=== PATIENT | male | born 1955 | race Caucasian/White ===

== ENCOUNTER → 2021-12-22 | Outpatient (CLI) | payer MEDICARE | END | disposition home or self-care (01) | LOC: SHCH 12:40 → EDSEX 13:00 | PROVIDERS: ATTEND Internal Medicine Cardiovascular Disease | DX: I08.0 Rheumatic disorders of both mitral and aortic valves (principal); I11.9 Hypertensive heart disease without heart failure; E11.9 Type 2 diabetes mellitus without complications; E78.5 Hyperlipidemia, unspecified; R94.31 Abnormal electrocardiogram [ECG] [EKG] | CPT/HCPCS: 93306 ==

== ENCOUNTER → 2022-03-05 | Outpatient (CLI) | payer MEDICARE ==
[~2022-03-05] MED LIST: REGADENOSON 0.4 MG/5 ML PF SYG IVP SCH
== END | disposition home or self-care (01) ==
LOC: SHCH 07:52
PROVIDERS: ATTEND Internal Medicine Cardiovascular Disease
DX: I45.10 Unspecified right bundle-branch block (principal); I48.0 Paroxysmal atrial fibrillation; I47.1 Supraventricular tachycardia; I48.92 Unspecified atrial flutter
CPT/HCPCS: 78452; 96374; 93017; J2785; A9500 ×2

== ENCOUNTER → 2022-07-02 | Outpatient (CLI) | payer MEDICARE ==
[2022-07-02 13:37] LABS: CREATININE 0.9 mg/dL (0.5-1.5)
== END | disposition home or self-care (01) ==
LOC: LAB 08:07
PROVIDERS: ATTEND Internal Medicine Cardiovascular Disease
DX: I48.0 Paroxysmal atrial fibrillation (principal)
CPT/HCPCS: 36415; 82565; 84520

== ENCOUNTER → 2022-07-08 | Outpatient (CLI) | payer MEDICARE ==
[~2022-07-08] MED LIST changes: +IOHEXOL 350 MG/ML 100ML INFUS..BTL IV ONE; -REGADENOSON 0.4 MG/5 ML PF SYG IVP SCH
== END | disposition home or self-care (01) ==
LOC: RAH 07:58
PROVIDERS: ATTEND Internal Medicine Cardiovascular Disease
DX: I48.0 Paroxysmal atrial fibrillation (principal); I48.92 Unspecified atrial flutter
CPT/HCPCS: 71275; Q9967

== ENCOUNTER 2022-07-27 05:33 | Observation (INO) | payer MEDICARE ==
[2022-07-22 12:39] VITALS: BP 126/68
[2022-07-22 12:41] LABS: BASOPHILS % (AUTO) 0.5 % (0.0-5.0); EOSINOPHILS % (AUTO) 2.9 % (0.0-8.0); HEMATOCRIT 39.9 % (42-54); LYMPHOCYTES % (AUTO) 30.7 % (21.0-51.0); MEAN CORPUSCULAR HEMOGLOBIN 31.3 pg (27.0-33.0); MEAN CORPUSCULAR HGB CONC 32.1 g/dL (32.0-36.0); MEAN CORPUSCULAR VOLUME 97.6 fL (79-99); MONOCYTES % (AUTO) 7.8 % (3.0-13.0); NEUTROPHILS % (AUTO) 57.8 % (40.0-77.0); PLATELET COUNT (AUTO) 107 K/uL (130-400); RED BLOOD CELL COUNT(AUTO) 4.09 MIL/uL (4.50-6.20); RED CELL DISTRIBUTION WIDTH 14.6 % (11.0-15.5); WHITE BLOOD COUNT (AUTO) 7.3 K/uL (4.8-10.8)
[2022-07-22 12:50] LABS: PROTHROMBIN TIME 10.9 SEC (9.6-11.6)
[2022-07-22 13:02] LABS: CREATININE 0.9 mg/dL (0.5-1.5); POTASSIUM 4.4 mmol/L (3.5-5.1)
[~2022-07-27] VITALS: Ht 180.3 cm; Wt 78.2 kg
[2022-07-27] VITALS (26 sets, daily range): BP systolic 124–183; BP diastolic 73–93
[~2022-07-27 05:33] MED LIST changes: +AEC81 PO; +CLON1PAT13 TD; +DAPA10TA PO; +INSU100V37 SQ; -IOHEXOL 350 MG/ML 100ML INFUS..BTL IV ONE; +LOSA1TAB42 PO; +METF-527 PO; +PIOG15TA66 PO; +RIVA20TA PO; +ROSU20TA31 PO; +SERT-440 PO; +SOTA120T PO; +VITAMIN D2 PO
[2022-07-27 06:02] LABS: BASOPHILS % (AUTO) 0.7 % (0.0-5.0); EOSINOPHILS % (AUTO) 5.5 % (0.0-8.0); HEMATOCRIT 40.7 % (42-54); LYMPHOCYTES % (AUTO) 28.9 % (21.0-51.0); MEAN CORPUSCULAR HEMOGLOBIN 31.7 pg (27.0-33.0); MEAN CORPUSCULAR HGB CONC 32.4 g/dL (32.0-36.0); MEAN CORPUSCULAR VOLUME 97.6 fL (79-99); MONOCYTES % (AUTO) 8.8 % (3.0-13.0); NEUTROPHILS % (AUTO) 55.7 % (40.0-77.0); PLATELET COUNT (AUTO) 106 K/uL (130-400); RED BLOOD CELL COUNT(AUTO) 4.17 MIL/uL (4.50-6.20); RED CELL DISTRIBUTION WIDTH 14.6 % (11.0-15.5); WHITE BLOOD COUNT (AUTO) 7.6 K/uL (4.8-10.8)
[2022-07-27] MEDS ORDERED: 0.9%NACL 1000ML 1,000 ML IV ONE (06:08)
[2022-07-27] MEDS ORDERED: PROPOFOL 10 MG/ML 20ML VIAL IV ONE ×2 (06:58→13:13)
[2022-07-27] MEDS ORDERED: ROCURONIUM BROMIDE 10MG/1ML 5ML VL ONE ×2 (06:58→09:26)
[2022-07-27] MEDS ORDERED: ATROPINE 1MG SYG IVP ONE (06:58)
[2022-07-27] MEDS ORDERED: FENTANYL CITRATE PF 50 MCG/1 ML 2ML VIAL ONE (06:58)
[2022-07-27] MEDS ORDERED: HEPARIN 10,000 UNIT/10ML (1,000 UNIT/ML) VIAL ONE ×2 (07:21→07:56)
[2022-07-27] MEDS ORDERED: LIDOCAINE HCL 1% MDV 50ML VIAL ONE (07:21)
[2022-07-27] MEDS ORDERED: MIDAZOLAM HCL 1 MG/ML 2ML VIAL ONE (07:34)
[2022-07-27] MEDS ORDERED: ISOPROTERENOL HCL 0.2 MG/ML AMP/VIAL/BAG ONE (12:21)
[2022-07-27] MEDS ORDERED: PROTAMINE SULFATE 10 MG/ML 25ML VIAL IV ONE (12:32)
[2022-07-27] MEDS ORDERED: SUGAMMADEX SODIUM 200 MG/2 ML VIAL IV ONE (13:26)
[2022-07-27] MEDS ORDERED: PANTOPRAZOLE 40 MG TAB DR PO SCH (14:00)
[2022-07-27] MEDS ORDERED: HYDRALAZINE 20MG/ML VIAL ONE (14:15)
[2022-07-27] MEDS ORDERED: ONDANSETRON 4MG INJ ONE (14:24)
[2022-07-27] MEDS ORDERED: CLONIDINE 0.2 MG/ 24 HR PATCH TD ONE (15:00)
[2022-07-27] MEDS: SUCRALFATE 1 GM TABLET PO SCH ×2 (16:14→21:13)
[2022-07-27] MEDS ORDERED: HYDROCHLOROTHIAZIDE 25 MG TABLET PO SCH (21:00)
[2022-07-27] MEDS ORDERED: ATORVASTATIN 40 MG TABLET PO SCH (21:00)
[2022-07-27] MEDS ORDERED: LOSARTAN 100 MG TABLET PO SCH (21:00)
[2022-07-27] MEDS ORDERED: TRESIBA SQ SCH (21:00)
[2022-07-27] MEDS ORDERED: RIVAROXABAN 20 MG TABLET PO SCH (21:00)
[2022-07-27] MEDS ORDERED: **HM**FARXIGA 10MG PO SCH (21:00)
[2022-07-27] MEDS: METFORMIN HCL 500 MG TAB.SR.24H PO SCH (21:12)
[2022-07-28] MEDS: SUCRALFATE 1 GM TABLET PO SCH ×3 (02:13→12:19)
[2022-07-28 04:14] VITALS: BP 161/81
[2022-07-28 08:05] VITALS: BP 148/83
[2022-07-28] MEDS ORDERED: PANTOPRAZOLE 40 MG TAB DR PO SCH (09:00)
[2022-07-28] MEDS ORDERED: SERTRALINE HCL 50 MG TABLET PO SCH (09:00)
[2022-07-28] MEDS ORDERED: PIOGLITAZONE 15MG TAB PO SCH (09:00)
[2022-07-28] MEDS ORDERED: ASPIRIN 81 MG EC TAB PO SCH (09:00)
[2022-07-28] MEDS: METFORMIN HCL 500 MG TAB.SR.24H PO SCH (09:41)
[2022-07-28 11:49] VITALS: BP 151/88
[2022-07-28] MEDS ORDERED: SUCR1ORA15 PO (14:03)
[2022-07-28] MEDS ORDERED: PANT40TA PO (14:03)
[2022-08-03] MEDS ORDERED: ERGOCALCIFEROL (VITAMIN D2) 50,000 UNIT CAPSULE PO SCH (09:00)
== END 2022-07-28 15:35 | disposition home or self-care (01) ==
LOC: DAH 05:33 → DAHIP 05:34 → 2AH 13:30
PROVIDERS: ADMIT Internal Medicine Cardiovascular Disease; ATTEND Internal Medicine Cardiovascular Disease
DX: I48.0 Paroxysmal atrial fibrillation (principal); Z20.822 Contact with and (suspected) exposure to COVID-19; I10 Essential (primary) hypertension; I47.1 Supraventricular tachycardia; E11.9 Type 2 diabetes mellitus without complications; E78.5 Hyperlipidemia, unspecified; Z79.84 Long term (current) use of oral hypoglycemic drugs; Z79.82 Long term (current) use of aspirin; Z79.899 Other long term (current) drug therapy; Z98.890 Other specified postprocedural states
CPT/HCPCS: 80048; 85025 ×2; 85610; 85730; 87426; 36415 ×2; 93005 ×2; 93622; 93623; 93656; 96374; 85347 ×10; 82948 ×4; C1894 ×4; A4344; A4215 ×2; C1731; A4649 ×2; C1732; C1730; C1766; G0378 ×26; J3010; J7030; J3490 ×4; J2720; J0360; J0461; J1644 ×4; J2250; J2704 ×2; J2405; A4223 ×3; A4222; A4221; A4663; A4216; A4606

== ENCOUNTER 2022-10-18 21:05 | Emergency (ER) | payer MEDICARE ==
[~2022-10-18] VITALS: Ht 180.3 cm; Wt 73.0 kg
[~2022-10-18 21:05] MED LIST changes: +PANT40TA PO; -SOTA120T PO; +SUCR1ORA15 PO
[2022-10-18] MEDS ORDERED: LIDOCAINE HCL 1% 20 ML VIAL ONE (22:48)
[2022-10-18] MEDS ORDERED: ACETAMINOPHEN 500 MG TABLET ONE (23:38)
[2022-10-18 23:44] VITALS: BP 138/76
== END 2022-10-18 23:47 | disposition home or self-care (01) ==
LOC: EDH 21:05
DX: S01.01XA Laceration without foreign body of scalp, initial encounter (principal); I48.91 Unspecified atrial fibrillation; Z79.899 Other long term (current) drug therapy; W18.30XA Fall on same level, unspecified, initial encounter; Y93.89 Activity, other specified; Y92.89 Other specified places as the place of occurrence of the external cause; Y99.8 Other external cause status
CPT/HCPCS: 12002; 70450; 72125

== ENCOUNTER 2022-10-25 17:24 | Emergency (ER) | payer MEDICARE ==
[~2022-10-25] VITALS: Ht 180.3 cm; Wt 73.0 kg
[~2022-10-25 17:24] MED LIST changes: -ROSU20TA31 PO; +ROSU20TA73 PO
[2022-10-25 19:39] VITALS: BP 113/59
== END 2022-10-25 19:58 | disposition home or self-care (01) ==
LOC: EDH 17:24
DX: S01.01XD Laceration without foreign body of scalp, subsequent encounter (principal); I48.91 Unspecified atrial fibrillation; Z79.82 Long term (current) use of aspirin; Z79.84 Long term (current) use of oral hypoglycemic drugs; Z79.899 Other long term (current) drug therapy; X58.XXXD Exposure to other specified factors, subsequent encounter
CPT/HCPCS: 99281

== ENCOUNTER → 2022-10-29 | Outpatient (CLI) | payer MEDICARE ==
[2022-10-29 09:11] LABS: BASOPHILS % (AUTO) 0.3 % (0.0-5.0); EOSINOPHILS % (AUTO) 1.1 % (0.0-8.0); LYMPHOCYTES % (AUTO) 10.7 % (21.0-51.0); MEAN CORPUSCULAR HEMOGLOBIN 29.9 pg (27.0-33.0); MEAN CORPUSCULAR HGB CONC 30.8 g/dL (32.0-36.0); MONOCYTES % (AUTO) 6.9 % (3.0-13.0); NEUTROPHILS % (AUTO) 80.7 % (40.0-77.0); PLATELET COUNT (AUTO) 142 K/uL (130-400); RED BLOOD CELL COUNT(AUTO) 2.68 MIL/uL (4.50-6.20); RED CELL DISTRIBUTION WIDTH 15.6 % (11.0-15.5); WHITE BLOOD COUNT (AUTO) 9.8 K/uL (4.8-10.8)
[2022-10-29 09:20] LABS: INR 1.1 (0.85-1.15); PROTHROMBIN TIME 11.9 SEC (9.6-11.6)
[2022-10-29 09:21] LABS: PARTIAL THROMBOPLASTIN TIME 30.6 SEC (26.3-35.5)
[2022-10-29 09:42] LABS: POTASSIUM 4.8 mmol/L (3.5-5.1)
== END | disposition home or self-care (01) ==
LOC: LAB 08:17
PROVIDERS: ATTEND Internal Medicine Cardiovascular Disease
DX: I73.9 Peripheral vascular disease, unspecified (principal); E11.9 Type 2 diabetes mellitus without complications; E78.2 Mixed hyperlipidemia; I48.0 Paroxysmal atrial fibrillation; I10 Essential (primary) hypertension; R01.1 Cardiac murmur, unspecified; R00.2 Palpitations; M79.605 Pain in left leg; M79.606 Pain in leg, unspecified
CPT/HCPCS: 36415; 80048; 85025; 85610; 85730

== ENCOUNTER 2023-01-28 13:01 | Day surgery (SDC) | payer MEDICARE ==
[~2023-01-28] VITALS: Ht 180.3 cm; Wt 73.0 kg
[2023-01-28] MEDS ORDERED: 0.9%NACL 1000ML 1,000 ML IV ONE (13:25)
[2023-01-28 13:46] VITALS: BP 174/124; PULSE 122; RESP 19
[2023-01-28] MEDS ORDERED: SOTA120T PO (13:57)
[2023-01-28] MEDS ORDERED: LOSA50TA64 PO (13:57)
[2023-01-28] MEDS ORDERED: PINDOLOL PO (13:57)
[2023-01-28] MEDS ORDERED: PIOG15TA66 PO (13:57)
== END 2023-01-28 14:00 | disposition home or self-care (01) ==
LOC: ENDO 13:01
PROVIDERS: ATTEND Internal Medicine Gastroenterology
DX: I47.1 Supraventricular tachycardia (principal); I10 Essential (primary) hypertension; I25.10 Atherosclerotic heart disease of native coronary artery without angina pectoris; G30.9 Alzheimer's disease, unspecified; R19.5 Other fecal abnormalities; E11.51 Type 2 diabetes mellitus with diabetic peripheral angiopathy without gangrene; I48.0 Paroxysmal atrial fibrillation; K21.9 Gastro-esophageal reflux disease without esophagitis; E78.00 Pure hypercholesterolemia, unspecified; Z79.01 Long term (current) use of anticoagulants; Z79.82 Long term (current) use of aspirin; Z79.4 Long term (current) use of insulin; Z85.828 Personal history of other malignant neoplasm of skin; Z86.73 Personal history of transient ischemic attack (TIA), and cerebral infarction without residual deficits
CPT/HCPCS: 93005; J7030

== ENCOUNTER 2023-01-28 14:11 | Inpatient (IN) | payer MEDICARE ==
[~2023-01-28] VITALS: Ht 180.3 cm; Wt 75.0 kg
[~2023-01-28 14:11] MED LIST changes: +LOSA50TA64 PO; +PINDOLOL PO; +SOTA120T PO
[2023-01-28 15:01] LABS: BASOPHILS # (AUTO) 0.01 K/uL (0.00-0.20); BASOPHILS % (AUTO) 0.1 % (0.0-5.0); EOSINOPHILS # (AUTO) 0.01 K/uL (0.00-0.70); EOSINOPHILS % (AUTO) 0.1 % (0.0-8.0); HEMATOCRIT 36.6 % (42-54); IMMATURE GRANULOCYTE ABSOLUTE 0.02 K/uL (0-1); LYMPHOCYTES # (AUTO) 0.8 K/uL (1.0-4.8); LYMPHOCYTES % (AUTO) 10.8 % (21.0-51.0); MEAN CORPUSCULAR HEMOGLOBIN 28.9 pg (27.0-33.0); MEAN CORPUSCULAR HGB CONC 32.2 g/dL (32.0-36.0); MEAN CORPUSCULAR VOLUME 89.5 fL (79-99); MONOCYTES # (AUTO) 0.3 K/uL (0.1-1.0); MONOCYTES % (AUTO) 3.9 % (3.0-13.0); NEUTROPHILS # (AUTO) 6.5 K/uL (1.8-7.7); NEUTROPHILS % (AUTO) 84.8 % (40.0-77.0); PLATELET COUNT (AUTO) 133 K/uL (130-400); RED BLOOD CELL COUNT(AUTO) 4.09 MIL/uL (4.50-6.20); RED CELL DISTRIBUTION WIDTH 18.4 % (11.0-15.5); WHITE BLOOD COUNT (AUTO) 7.7 K/uL (4.8-10.8)
[2023-01-28 15:13] LABS: ALBUMIN 3.4 g/dL (3.5-5.0); BILIRUBIN,TOTAL 0.4 mg/dL (0.2-1.0); CREATININE 0.8 mg/dL (0.5-1.5); POTASSIUM 3.1 mmol/L (3.5-5.1); TOTAL PROTEIN, SERUM 6.8 g/dL (6.0-8.3)
[2023-01-28] MEDS ORDERED: DEXTROSE 50%-WATER 50 ML DISP.SYRIN IV ONE (15:22)
[2023-01-28 16:29] LABS: B-TYPE NATRIURETIC PEPTIDE 479 pg/mL (0-100)
[2023-01-28] MEDS ORDERED: POTASSIUM BICARB/CIT AC 25 MEQ TABLET.EFF PO STA (16:32)
[2023-01-28] MEDS ORDERED: POTASSIUM CHLORIDE 20MEQ/100ML 100 ML IV PRN (18:30)
[2023-01-28] MEDS ORDERED: POTASSIUM CHLORIDE 10% ELIXIR 20 MEQ/15 ML UDCUP PO PRN (18:30)
[2023-01-28] MEDS ORDERED: ACETAMINOPHEN 325 MG TAB PO PRN (18:30)
[2023-01-28] MEDS ORDERED: ONDANSETRON 4MG INJ IV PRN (18:30)
[2023-01-28] MEDS ORDERED: KCL 20 MEQ ERTAB PO PRN (18:30)
[2023-01-28] MEDS ORDERED: HYDRALAZINE 20MG/ML VIAL IV PRN (18:30)
[2023-01-28] MEDS ORDERED: HYDROCODONE/ACETAMINOPHEN 5/325 MG TAB PO PRN (18:30)
[2023-01-28] MEDS ORDERED: MORPHINE 4 MG SYG IV PRN (18:30)
[2023-01-28] MEDS: DEXTROSE 5%-WATER 1,000 ML IV SCH (20:45)
[2023-01-28] MEDS ORDERED: PINDOLOL 5 MG TAB PO SCH (21:00)
[2023-01-28 21:27] LABS: APPEARANCE,URINE CLEAR (CLEAR); BILIRUBIN,URINE NEGATIVE (NEGATIVE); COLOR,URINE LIGHT-YELLOW (YELLOW); GLUCOSE, URINE (UA) 300 mg/dL (NEGATIVE); KETONES,URINE 40 mg/dL (NEGATIVE); LEUKOCYTE ESTERASE ,URINE NEGATIVE Leu/uL (NEGATIVE); NITRATE,URINE NEGATIVE (NEGATIVE); OCCULT BLOOD,URINE NEGATIVE (NEGATIVE); PH,URINE 5.5 (5.0-8.0); PROTEIN,URINE 100 mg/dL (NEGATIVE); UROBILINOGEN,URINE 0.2 mg/dL (0.2-1.0)
[2023-01-28 21:28] LABS: ADD UA MICROSCOPIC YES; MUCUS,URINE RARE LPF (None Seen)
[2023-01-28 21:54] VITALS: BP 161/117; PULSE 130; RESP 20
[2023-01-28 22:00] VITALS: O2SAT 98
[2023-01-29] VITALS (10 sets, daily range): BP systolic 124–166; BP diastolic 83–122; PULSE 68–129; RESP 16–20; O2SAT 98
[2023-01-29 05:03] LABS: BASOPHILS # (AUTO) 0.02 K/uL (0.00-0.20); BASOPHILS % (AUTO) 0.3 % (0.0-5.0); EOSINOPHILS % (AUTO) 1.3 % (0.0-8.0); HEMATOCRIT 34.7 % (42-54); IMMATURE GRANULOCYTE ABSOLUTE 0.02 K/uL (0-1); LYMPHOCYTES # (AUTO) 1.5 K/uL (1.0-4.8); MEAN CORPUSCULAR HEMOGLOBIN 28.3 pg (27.0-33.0); MEAN CORPUSCULAR HGB CONC 31.4 g/dL (32.0-36.0); MEAN CORPUSCULAR VOLUME 90.1 fL (79-99); MONOCYTES # (AUTO) 0.7 K/uL (0.1-1.0); MONOCYTES % (AUTO) 8.9 % (3.0-13.0); NEUTROPHILS # (AUTO) 5.4 K/uL (1.8-7.7); NEUTROPHILS % (AUTO) 70.2 % (40.0-77.0); PLATELET COUNT (AUTO) 93 K/uL (130-400); RED BLOOD CELL COUNT(AUTO) 3.85 MIL/uL (4.50-6.20); RED CELL DISTRIBUTION WIDTH 18.3 % (11.0-15.5); WHITE BLOOD COUNT (AUTO) 7.7 K/uL (4.8-10.8)
[2023-01-29 05:12] LABS: CREATININE 1.1 mg/dL (0.5-1.5); MAGNESIUM 1.5 mg/dL (1.80-2.40); PHOSPHORUS 2.9 mg/dL (2.5-4.9); POTASSIUM 3.8 mmol/L (3.5-5.1)
[2023-01-29 05:18] LABS: HEMOGLOBIN A1C 6.9 % (4.0-6.0)
[2023-01-29] MEDS: INSULIN HUMULIN R 100 UNIT/ML 3ML SQ SCH ×4 (07:30→21:00)
[2023-01-29] MEDS: FAMOTIDINE 20MG TAB PO SCH (08:31)
[2023-01-29] MEDS: ASPIRIN 81 MG EC TAB PO SCH (08:32)
[2023-01-29] MEDS: SERTRALINE HCL 50 MG TABLET PO SCH (08:32)
[2023-01-29] MEDS: LOSARTAN 50 MG TABLET PO SCH ×2 (08:32→21:56)
[2023-01-29] MEDS: MAGNESIUM 2GM PREMIX 50ML 50 ML IV PRN (08:34)
[2023-01-29] MEDS ORDERED: METFORMIN HCL 1000 MG PO SCH (09:00)
[2023-01-29] MEDS ORDERED: NON-FORMULARY MEDICATION 1 EACH (Sertraline HCl 200 MG) PO SCH (09:00)
[2023-01-29] MEDS ORDERED: SOTALOL HCL 120 MG PO SCH (09:00)
[2023-01-29] MEDS ORDERED: PINDOLOL 5 MG TAB PO SCH (09:00)
[2023-01-29] MEDS ORDERED: SOTALOL HCL 80 MG TABLET PO SCH (09:00)
[2023-01-29] MEDS ORDERED: AMLODIPINE 5 MG TAB PO SCH (10:00)
[2023-01-29] MEDS ORDERED: VERAPAMIL HCL 240 MG SRTAB PO SCH (10:30)
[2023-01-29] MEDS: BISACODYL 5 MG TABLET.DR PO SCH ×2 (15:18→21:56)
[2023-01-29] MEDS: PINDOLOL 5 MG TAB PO SCH ×2 (15:18→21:56)
[2023-01-29] MEDS: POLYETHYLENE GLYCOL 3350 17 GM POWD.PACK PO SCH ×7 (15:18→16:59)
[2023-01-29] MEDS: DEXTROSE 5%-WATER 1,000 ML IV SCH (15:58)
[2023-01-29] MEDS ORDERED: ENALAPRIL MALEATE 5 MG TAB PO STA (17:32)
[2023-01-29] MEDS: Rosuvastatin Calcium 20 MG PO SCH (22:08)
[2023-01-30] VITALS (18 sets, daily range): BP systolic 122–170; BP diastolic 68–125; PULSE 65–129; RESP 18; O2SAT 96–100
[2023-01-30 04:12] LABS: BASOPHILS # (AUTO) 0.02 K/uL (0.00-0.20); BASOPHILS % (AUTO) 0.3 % (0.0-5.0); EOSINOPHILS # (AUTO) 0.16 K/uL (0.00-0.70); EOSINOPHILS % (AUTO) 2.1 % (0.0-8.0); HEMATOCRIT 32.8 % (42-54); IMMATURE GRANULOCYTE ABSOLUTE 0.03 K/uL (0-1); LYMPHOCYTES # (AUTO) 0.9 K/uL (1.0-4.8); LYMPHOCYTES % (AUTO) 12.3 % (21.0-51.0); MEAN CORPUSCULAR HEMOGLOBIN 28.7 pg (27.0-33.0); MEAN CORPUSCULAR HGB CONC 32.3 g/dL (32.0-36.0); MEAN CORPUSCULAR VOLUME 88.9 fL (79-99); MONOCYTES # (AUTO) 0.7 K/uL (0.1-1.0); MONOCYTES % (AUTO) 9.4 % (3.0-13.0); NEUTROPHILS # (AUTO) 5.6 K/uL (1.8-7.7); NEUTROPHILS % (AUTO) 75.5 % (40.0-77.0); PLATELET COUNT (AUTO) 101 K/uL (130-400); RED BLOOD CELL COUNT(AUTO) 3.69 MIL/uL (4.50-6.20); RED CELL DISTRIBUTION WIDTH 18.1 % (11.0-15.5); WHITE BLOOD COUNT (AUTO) 7.5 K/uL (4.8-10.8)
[2023-01-30 04:24] LABS: CREATININE 0.9 mg/dL (0.5-1.5); MAGNESIUM 1.7 mg/dL (1.80-2.40); PHOSPHORUS 2.4 mg/dL (2.5-4.9)
[2023-01-30 04:25] LABS: POTASSIUM 2.9 mmol/L (3.5-5.1)
[2023-01-30] MEDS: INSULIN HUMULIN R 100 UNIT/ML 3ML SQ SCH ×4 (07:30→20:56)
[2023-01-30 08:29] LABS: MAGNESIUM 1.7 mg/dL (1.80-2.40); POTASSIUM 3.3 mmol/L (3.5-5.1)
[2023-01-30] MEDS: LOSARTAN 50 MG TABLET PO SCH ×2 (08:45→20:53)
[2023-01-30] MEDS: FAMOTIDINE 20MG TAB PO SCH (08:46)
[2023-01-30] MEDS: BISACODYL 5 MG TABLET.DR PO SCH ×2 (08:46→20:54)
[2023-01-30] MEDS: PINDOLOL 5 MG TAB PO SCH ×2 (08:47→20:54)
[2023-01-30] MEDS: SERTRALINE HCL 50 MG TABLET PO SCH (08:48)
[2023-01-30] MEDS: ASPIRIN 81 MG EC TAB PO SCH (09:00)
[2023-01-30] MEDS ORDERED: ENALAPRIL MALEATE 5 MG TAB PO SCH ×3 (09:00→21:00)
[2023-01-30] MEDS ORDERED: METOPROLOL TARTRATE 1 MG/ML 5ML VIAL IV ONE (09:30)
[2023-01-30] MEDS ORDERED: KCL 20 MEQ ERTAB PO ONE ×2 (09:30→21:00)
[2023-01-30] MEDS ORDERED: MAGNESIUM OXIDE 400 MG TABLET PO SCH (09:30)
[2023-01-30] MEDS: ACETAMINOPHEN 325 MG TAB PO PRN (09:46)
[2023-01-30] MEDS ORDERED: DILTIAZEM 180MG SR CAP PO SCH (11:30)
[2023-01-30] MEDS: DEXTROSE 5%-WATER 1,000 ML IV SCH (13:00)
[2023-01-30] MEDS ORDERED: DILTIAZEM 25MG INJ IVP ONE ×2 (14:00→16:30)
[2023-01-30] MEDS ORDERED: [UNRECOGNIZED DRUG - OTHER] IV SCH (14:00)
[2023-01-30] MEDS ORDERED: DILTIAZEM IV SCH (14:00)
[2023-01-30] MEDS ORDERED: DILTIAZEM 125 MG/25 ML INJ 125 MG in 0.9%NACL 100ML 100 ML IV SCH (14:30)
[2023-01-30] MEDS: DILTIAZEM 125 MG/25 ML INJ 125 MG in 0.9%NACL 100ML 100 ML IV SCH (14:37)
[2023-01-30] MEDS: POLYETHYLENE GLYCOL 3350 17 GM POWD.PACK PO SCH ×3 (20:53→21:37)
[2023-01-30 21:00] LABS: MAGNESIUM 1.8 mg/dL (1.80-2.40); POTASSIUM 3.6 mmol/L (3.5-5.1)
[2023-01-30] MEDS: Rosuvastatin Calcium 20 MG PO SCH (21:00)
[2023-01-30] MEDS ORDERED: BISACODYL 5 MG TABLET.DR PO SCH (21:00)
[2023-01-30 22:02] LABS: INR 0.97 (0.85-1.15); PROTHROMBIN TIME 11.3 SEC (9.6-11.6)
[2023-01-30 22:03] LABS: PARTIAL THROMBOPLASTIN TIME 27.8 SEC (26.3-35.5)
[2023-01-31] VITALS (9 sets, daily range): BP systolic 113–146; BP diastolic 34–110; PULSE 58–130; RESP 16–18; O2SAT 96
[2023-01-31] MEDS: DILTIAZEM 125 MG/25 ML INJ 125 MG in 0.9%NACL 100ML 100 ML IV SCH ×2 (03:29→12:32)
[2023-01-31 04:29] LABS: BASOPHILS # (AUTO) 0.03 K/uL (0.00-0.20); BASOPHILS % (AUTO) 0.5 % (0.0-5.0); EOSINOPHILS # (AUTO) 0.16 K/uL (0.00-0.70); EOSINOPHILS % (AUTO) 2.4 % (0.0-8.0); HEMATOCRIT 32.9 % (42-54); IMMATURE GRANULOCYTE ABSOLUTE 0.02 K/uL (0-1); LYMPHOCYTES # (AUTO) 1.1 K/uL (1.0-4.8); LYMPHOCYTES % (AUTO) 16.2 % (21.0-51.0); MEAN CORPUSCULAR HEMOGLOBIN 28.9 pg (27.0-33.0); MEAN CORPUSCULAR HGB CONC 32.2 g/dL (32.0-36.0); MEAN CORPUSCULAR VOLUME 89.6 fL (79-99); MONOCYTES # (AUTO) 0.6 K/uL (0.1-1.0); MONOCYTES % (AUTO) 9.3 % (3.0-13.0); NEUTROPHILS # (AUTO) 4.7 K/uL (1.8-7.7); NEUTROPHILS % (AUTO) 71.3 % (40.0-77.0); PLATELET COUNT (AUTO) 105 K/uL (130-400); RED BLOOD CELL COUNT(AUTO) 3.67 MIL/uL (4.50-6.20); RED CELL DISTRIBUTION WIDTH 18.2 % (11.0-15.5); WHITE BLOOD COUNT (AUTO) 6.7 K/uL (4.8-10.8)
[2023-01-31 04:35] LABS: CREATININE 0.8 mg/dL (0.5-1.5); POTASSIUM 3.4 mmol/L (3.5-5.1)
[2023-01-31] MEDS ORDERED: METOPROLOL TARTRATE 1 MG/ML 5ML VIAL IV ONE (04:51)
[2023-01-31] MEDS: INSULIN HUMULIN R 100 UNIT/ML 3ML SQ SCH ×4 (06:23→21:00)
[2023-01-31] MEDS: ASPIRIN 81 MG EC TAB PO SCH (09:00)
[2023-01-31] MEDS: ENOXAPARIN SODIUM 80 MG/0.8 ML SQ SCH ×2 (09:00→21:00)
[2023-01-31] MEDS: BISACODYL 5 MG TABLET.DR PO SCH ×3 (09:00→23:18)
[2023-01-31] MEDS: DEXTROSE 5%-WATER 1,000 ML IV SCH (09:00)
[2023-01-31] MEDS ORDERED: DILTIAZEM 180MG SR CAP PO SCH (09:00)
[2023-01-31] MEDS ORDERED: SOTALOL HCL 80 MG TABLET PO SCH (09:00)
[2023-01-31] MEDS: ACETAMINOPHEN 325 MG TAB PO PRN (10:19)
[2023-01-31] MEDS: PINDOLOL 5 MG TAB PO SCH ×2 (10:20→22:52)
[2023-01-31] MEDS: SERTRALINE HCL 50 MG TABLET PO SCH (10:36)
[2023-01-31] MEDS: FAMOTIDINE 20MG TAB PO SCH (10:36)
[2023-01-31] MEDS: LOSARTAN 50 MG TABLET PO SCH ×2 (10:36→23:27)
[2023-01-31] MEDS: VERAPAMIL HCL 80 MG TABLET PO SCH ×2 (12:30→23:27)
[2023-01-31] MEDS ORDERED: CLONIDINE 0.2 MG/ 24 HR PATCH TD SCH (15:00)
[2023-01-31] MEDS: Rosuvastatin Calcium 20 MG PO SCH (21:00)
[2023-01-31] MEDS: METOPROLOL TARTRATE 25 MG TAB PO SCH (21:05)
[2023-01-31] MEDS ORDERED: POLYETHYLENE GLYCOL 3350 17 GM POWD.PACK PO ONE (22:00)
[2023-02-01] VITALS (19 sets, daily range): BP systolic 149–179; BP diastolic 75–99; PULSE 79–91; RESP 16–20; O2SAT 95–96
[2023-02-01 04:01] LABS: BASOPHILS # (AUTO) 0.03 K/uL (0.00-0.20); BASOPHILS % (AUTO) 0.4 % (0.0-5.0); EOSINOPHILS # (AUTO) 0.16 K/uL (0.00-0.70); EOSINOPHILS % (AUTO) 1.9 % (0.0-8.0); IMMATURE GRANULOCYTE ABSOLUTE 0.04 K/uL (0-1); LYMPHOCYTES # (AUTO) 0.9 K/uL (1.0-4.8); LYMPHOCYTES % (AUTO) 10.5 % (21.0-51.0); MEAN CORPUSCULAR HEMOGLOBIN 28.7 pg (27.0-33.0); MEAN CORPUSCULAR HGB CONC 31.9 g/dL (32.0-36.0); MEAN CORPUSCULAR VOLUME 89.9 fL (79-99); MONOCYTES # (AUTO) 0.8 K/uL (0.1-1.0); MONOCYTES % (AUTO) 9.4 % (3.0-13.0); NEUTROPHILS # (AUTO) 6.6 K/uL (1.8-7.7); NEUTROPHILS % (AUTO) 77.3 % (40.0-77.0); PLATELET COUNT (AUTO) 113 K/uL (130-400); RED BLOOD CELL COUNT(AUTO) 3.56 MIL/uL (4.50-6.20); RED CELL DISTRIBUTION WIDTH 18.5 % (11.0-15.5); WHITE BLOOD COUNT (AUTO) 8.5 K/uL (4.8-10.8)
[2023-02-01 04:20] LABS: BILIRUBIN,TOTAL 0.5 mg/dL (0.2-1.0); MAGNESIUM 1.6 mg/dL (1.80-2.40); POTASSIUM 3.8 mmol/L (3.5-5.1); TOTAL PROTEIN, SERUM 6.3 g/dL (6.0-8.3)
[2023-02-01] MEDS: VERAPAMIL HCL 80 MG TABLET PO SCH ×3 (04:50→20:50)
[2023-02-01] MEDS: MAGNESIUM 2GM PREMIX 50ML 50 ML IV PRN (04:50)
[2023-02-01] MEDS: DEXTROSE 5%-WATER 1,000 ML IV SCH (05:00)
[2023-02-01] MEDS: INSULIN HUMULIN R 100 UNIT/ML 3ML SQ SCH ×4 (06:29→20:49)
[2023-02-01] MEDS: PINDOLOL 5 MG TAB PO SCH ×2 (09:00→20:51)
[2023-02-01] MEDS: ASPIRIN 81 MG EC TAB PO SCH (09:00)
[2023-02-01] MEDS: METOPROLOL TARTRATE 25 MG TAB PO SCH (09:00)
[2023-02-01] MEDS: BISACODYL 5 MG TABLET.DR PO SCH ×3 (09:00→20:51)
[2023-02-01] MEDS: ENOXAPARIN SODIUM 80 MG/0.8 ML SQ SCH ×2 (09:00→20:52)
[2023-02-01] MEDS: LOSARTAN 50 MG TABLET PO SCH ×2 (09:00→20:53)
[2023-02-01] MEDS: SERTRALINE HCL 50 MG TABLET PO SCH (09:00)
[2023-02-01] MEDS: FAMOTIDINE 20MG TAB PO SCH (09:00)
[2023-02-01] MEDS ORDERED: AMIODARONE 900MG VIAL 150 MG in DEXTROSE 5%-WATER 100 ML IV SCH (13:00)
[2023-02-01] MEDS ORDERED: COMPOUND IV MISC 1 EACH IVSOLN MISC PRN (13:00)
[2023-02-01] MEDS ORDERED: COMPOUND IV REFRIGERATED 1 EACH IVSOLN MISC PRN (13:00)
[2023-02-01] MEDS ORDERED: AMIODARONE 900MG VIAL 360 MG in DEXTROSE 5%-WATER 200 ML IV SCH (13:09)
[2023-02-01] MEDS ORDERED: PROPOFOL 10 MG/ML 20ML VIAL IV ONE ×2 (13:56→14:52)
[2023-02-01] MEDS ORDERED: LIDOCAINE PF 100MG/5ML (2%) SYRINGE 5ML ONE (13:57)
[2023-02-01] MEDS ORDERED: GLYCOPYRROLATE 1 MG/5 ML SYRINGE ONE (14:00)
[2023-02-01] MEDS: Rosuvastatin Calcium 20 MG PO SCH (21:00)
[2023-02-01] MEDS: AMIODARONE 900MG VIAL 540 MG in DEXTROSE 5%-WATER 300 ML IV SCH (21:58)
[2023-02-02 00:36] VITALS: BP 161/92; PULSE 92; RESP 16
[2023-02-02] MEDS: DEXTROSE 5%-WATER 1,000 ML IV SCH (01:00)
[2023-02-02 03:14] VITALS: BP 162/97; PULSE 90; RESP 18
[2023-02-02] MEDS: VERAPAMIL HCL 80 MG TABLET PO SCH ×2 (04:24→12:12)
[2023-02-02 04:46] LABS: HEMATOCRIT 31.6 % (42-54); MEAN CORPUSCULAR HEMOGLOBIN 28.5 pg (27.0-33.0); MEAN CORPUSCULAR HGB CONC 32.3 g/dL (32.0-36.0); MEAN CORPUSCULAR VOLUME 88.3 fL (79-99); PLATELET COUNT (AUTO) 117 K/uL (130-400); RED BLOOD CELL COUNT(AUTO) 3.58 MIL/uL (4.50-6.20); WHITE BLOOD COUNT (AUTO) 7.2 K/uL (4.8-10.8)
[2023-02-02 05:05] LABS: ALBUMIN 2.7 g/dL (3.5-5.0); BILIRUBIN,TOTAL 0.4 mg/dL (0.2-1.0); CREATININE 0.8 mg/dL (0.5-1.5); MAGNESIUM 1.8 mg/dL (1.80-2.40); POTASSIUM 3.1 mmol/L (3.5-5.1); TOTAL PROTEIN, SERUM 6.1 g/dL (6.0-8.3)
[2023-02-02] MEDS: INSULIN HUMULIN R 100 UNIT/ML 3ML SQ SCH ×2 (06:54→12:10)
[2023-02-02] MEDS: AMIODARONE 900MG VIAL 540 MG in DEXTROSE 5%-WATER 300 ML IV SCH (06:55)
[2023-02-02 08:04] VITALS: BP 169/96; PULSE 85; RESP 18
[2023-02-02] MEDS ORDERED: POTASSIUM CHLORIDE 20 MEQ/100 ML BAG IV SCH (08:30)
[2023-02-02] MEDS ORDERED: MAGNESIUM 2GM PREMIX 50ML 50 ML IV SCH (08:30)
[2023-02-02] MEDS ORDERED: PINDOLOL 5 MG TAB PO SCH ×2 (09:00)
[2023-02-02] MEDS: SERTRALINE HCL 50 MG TABLET PO SCH (09:14)
[2023-02-02] MEDS: FAMOTIDINE 20MG TAB PO SCH (09:14)
[2023-02-02] MEDS: LOSARTAN 50 MG TABLET PO SCH (09:14)
[2023-02-02] MEDS: ENOXAPARIN SODIUM 80 MG/0.8 ML SQ SCH (09:14)
[2023-02-02] MEDS: BISACODYL 5 MG TABLET.DR PO SCH (09:15)
[2023-02-02] MEDS: ASPIRIN 81 MG EC TAB PO SCH (09:15)
[2023-02-02 09:30] VITALS: O2SAT 96
[2023-02-02] MEDS ORDERED: PIND5 PO (10:54)
[2023-02-02] MEDS ORDERED: APIX5TAB PO (10:54)
[2023-02-02] MEDS ORDERED: NITR0.4T50 SL (10:56)
[2023-02-02] MEDS ORDERED: AMIO200T68 PO (10:56)
[2023-02-02] MEDS ORDERED: VERA40TA5 PO (11:01)
[2023-02-02 11:25] VITALS: BP 120/67; PULSE 80; RESP 18
== END 2023-02-02 15:25 | disposition home or self-care (01) | DRG 394 ==
LOC: EDH 14:11 → EDHIP 18:08 → 2DH 20:05
PROVIDERS: ADMIT Internal Medicine; ATTEND Internal Medicine
PROC: 0DB98ZX Excision of Duodenum, Via Natural or Artificial Opening Endoscopic, Diagnostic (ICD-10-PCS; principal; 2023-02-01)
PROC: 0DB78ZX Excision of Stomach, Pylorus, Via Natural or Artificial Opening Endoscopic, Diagnostic (ICD-10-PCS; 2023-02-01)
PROC: 0DB58ZX Excision of Esophagus, Via Natural or Artificial Opening Endoscopic, Diagnostic (ICD-10-PCS; 2023-02-01)
PROC: 0DBK8ZX Excision of Ascending Colon, Via Natural or Artificial Opening Endoscopic, Diagnostic (ICD-10-PCS; 2023-02-01)
PROC: 0DBL8ZX Excision of Transverse Colon, Via Natural or Artificial Opening Endoscopic, Diagnostic (ICD-10-PCS; 2023-02-01)
PROC: 0DBC8ZX Excision of Ileocecal Valve, Via Natural or Artificial Opening Endoscopic, Diagnostic (ICD-10-PCS; 2023-02-01)
PROC: 0DBM8ZX Excision of Descending Colon, Via Natural or Artificial Opening Endoscopic, Diagnostic (ICD-10-PCS; 2023-02-01)
DX: D12.4 Benign neoplasm of descending colon (principal); D62 Acute posthemorrhagic anemia; I48.4 Atypical atrial flutter; G24.8 Other dystonia; I10 Essential (primary) hypertension; D12.2 Benign neoplasm of ascending colon; K64.1 Second degree hemorrhoids; D12.0 Benign neoplasm of cecum; I95.1 Orthostatic hypotension; E11.649 Type 2 diabetes mellitus with hypoglycemia without coma; E87.6 Hypokalemia; G90.9 Disorder of the autonomic nervous system, unspecified; I48.0 Paroxysmal atrial fibrillation; D12.3 Benign neoplasm of transverse colon; E78.00 Pure hypercholesterolemia, unspecified; R19.5 Other fecal abnormalities; E11.51 Type 2 diabetes mellitus with diabetic peripheral angiopathy without gangrene; I25.10 Atherosclerotic heart disease of native coronary artery without angina pectoris; G30.9 Alzheimer's disease, unspecified; F02.80 Dementia in other diseases classified elsewhere, unspecified severity, without behavioral disturbance, psychotic disturbance, mood disturbance, and anxiety; Z53.9 Procedure and treatment not carried out, unspecified reason; Z79.4 Long term (current) use of insulin; Z51.5 Encounter for palliative care; Z79.01 Long term (current) use of anticoagulants; Z79.82 Long term (current) use of aspirin; Z85.820 Personal history of malignant melanoma of skin; Z85.828 Personal history of other malignant neoplasm of skin; Z86.73 Personal history of transient ischemic attack (TIA), and cerebral infarction without residual deficits; K29.00 Acute gastritis without bleeding; K21.00 Gastro-esophageal reflux disease with esophagitis, without bleeding
CPT/HCPCS: 36415; 43239; 45380; 45381; 45385; 71045; 80048; 80053; 81001; 82550; 82948; 83036; 83605; 83735; 83880; 84100; 84132; 84484; 85025; 85027; 85610; 85730; 87040; 93005; G0378; J0282; J0360; J1650; J1815; J2001; J2704; J3475; J3480; J3490; J7060; J7070

== ENCOUNTER 2023-08-29 06:00 | Day surgery (SDC) | payer MEDICARE ==
[2023-08-26 12:09] LABS: BASOPHILS # (AUTO) 0.06 K/uL (0.00-0.20); BASOPHILS % (AUTO) 0.7 % (0.0-5.0); EOSINOPHILS # (AUTO) 0.38 K/uL (0.00-0.70); EOSINOPHILS % (AUTO) 4.2 % (0.0-8.0); HEMATOCRIT 41.2 % (42-54); IMMATURE GRANULOCYTE ABSOLUTE 0.02 K/uL (0-1); LYMPHOCYTES # (AUTO) 1.7 K/uL (1.0-4.8); LYMPHOCYTES % (AUTO) 18.2 % (21.0-51.0); MEAN CORPUSCULAR VOLUME 96.9 fL (79-99); MONOCYTES # (AUTO) 0.5 K/uL (0.1-1.0); NEUTROPHILS # (AUTO) 6.5 K/uL (1.8-7.7); NEUTROPHILS % (AUTO) 71.7 % (40.0-77.0); PLATELET COUNT (AUTO) 105 K/uL (130-400); RED BLOOD CELL COUNT(AUTO) 4.25 MIL/uL (4.50-6.20); RED CELL DISTRIBUTION WIDTH 16.6 % (11.0-15.5); WHITE BLOOD COUNT (AUTO) 9.1 K/uL (4.8-10.8)
[2023-08-26 12:18] VITALS: BP 137/75; PULSE 50; RESP 18
[2023-08-26 12:23] LABS: CREATININE 1.3 mg/dL (0.5-1.3); POTASSIUM 4.8 mmol/L (3.5-5.1)
[2023-08-26 12:28] LABS: INR 1.79 (0.85-1.15); PROTHROMBIN TIME 20.2 SEC (9.6-11.6)
[2023-08-26 12:29] LABS: PARTIAL THROMBOPLASTIN TIME 51.2 SEC (26.3-35.5)
[2023-08-26 12:31] LABS: B-TYPE NATRIURETIC PEPTIDE 50 pg/mL (0-100)
[2023-08-29] VITALS (10 sets, daily range): BP systolic 117–166; BP diastolic 67–90; PULSE 51–58; RESP 14–18
[~2023-08-29] VITALS: Ht 180.3 cm; Wt 78.4 kg
[~2023-08-29 06:00] MED LIST changes: -AEC81 PO; +AMIO200T68 PO; +APIX5TAB PO; +CLON1PAT12 TD; -CLON1PAT13 TD; -DAPA10TA PO; +DILT120C12 PO; +ERGO500093 PO; +FERS325 PO; -LOSA1TAB42 PO; +METF-444 PO; -METF-527 PO; +MULT-1367 PO; -PANT40TA PO; +PIND10TA2 PO; -PINDOLOL PO; -RIVA20TA PO; -SOTA120T PO; -SUCR1ORA15 PO; -VITAMIN D2 PO
[2023-08-29 06:25] LABS: INR 0.96 (0.85-1.15); PROTHROMBIN TIME 11.4 SEC (9.6-11.6)
[2023-08-29] MEDS: 0.9%NACL 1000ML 1,000 ML IV ONE (06:48)
[2023-08-29] MEDS: DEXTROSE 50%-WATER 50 ML DISP.SYRIN IV ONE (07:15)
[2023-08-29] MEDS ORDERED: MIDAZOLAM HCL 1 MG/ML 2ML VIAL ONE (07:20)
[2023-08-29] MEDS ORDERED: LIDOCAINE HCL 400MG/20ML VIAL ONE (07:20)
[2023-08-29] MEDS ORDERED: HEPARIN 10,000 UNIT/10ML (1,000 UNIT/ML) VIAL ONE (07:20)
[2023-08-29] MEDS ORDERED: FENTANYL CITRATE PF 50 MCG/1 ML 2ML VIAL ONE (07:20)
[2023-08-29] MEDS ORDERED: NICARDIPINE 25MG INJ IV ONE (07:20)
[2023-08-29] MEDS ORDERED: NITROGLYCERIN 50MG VIAL ONE (07:21)
[2023-08-29] MEDS ORDERED: IODIXANOL 320 MG/ML 100 ML VIAL ONE (07:29)
[2023-08-29] MEDS ORDERED: HYDRALAZINE 20MG/ML VIAL ONE (07:54)
[2023-08-29] MEDS ORDERED: CLOPIDOGREL 300MG TAB ONE (09:23)
[2023-08-29] MEDS ORDERED: 0.9%NACL 1000ML 1,000 ML IV SCH (10:00)
== END 2023-08-29 13:45 | disposition home or self-care (01) ==
LOC: DAH 06:00
PROVIDERS: ATTEND Internal Medicine Cardiovascular Disease
DX: I70.211 Atherosclerosis of native arteries of extremities with intermittent claudication, right leg (principal); E11.51 Type 2 diabetes mellitus with diabetic peripheral angiopathy without gangrene; I70.92 Chronic total occlusion of artery of the extremities; I48.0 Paroxysmal atrial fibrillation; I47.20 Ventricular tachycardia, unspecified; E78.2 Mixed hyperlipidemia; I10 Essential (primary) hypertension; D63.8 Anemia in other chronic diseases classified elsewhere; E78.5 Hyperlipidemia, unspecified; R00.1 Bradycardia, unspecified; Z79.899 Other long term (current) drug therapy; Z79.01 Long term (current) use of anticoagulants; Z98.890 Other specified postprocedural states; Z86.010 Personal history of colon polyps
CPT/HCPCS: 80048; 83880; 85025; 85610 ×2; 85730; 36415 ×2; 71045; 93005; 75716; 85347; 82948 ×2; C9772; C1725 ×3; C1894 ×2; C1769 ×2; C1760; C1893; C1887; C2623; C9764; J3010; J3490 ×3; J7030 ×2; J7070; J0360; J1644 ×3; J2250; Q9967; A4215; A4222; A4221; A4663; A4216; A4606; A4223 ×3; 75774; 96360; 96361; 99156; 99157

== ENCOUNTER → 2023-12-08 | Outpatient (CLI) | payer MEDICARE ==
[~2023-12-08] MED LIST changes: -AMIO200T68 PO; -CLON1PAT12 TD; +CLON1PAT13 TD; -DILT120C12 PO; +GADOTERATE MEGLUMINE 10 MMOL/20 ML VIAL IV ONE; +INSU100I24 SQ; -INSU100V37 SQ; +LEVO75CA5 PO; -METF-444 PO
== END | disposition home or self-care (01) ==
LOC: RAH 11:27
PROVIDERS: ATTEND Family Medicine
DX: G31.89 Other specified degenerative diseases of nervous system (principal); R27.0 Ataxia, unspecified; G20.A1 Parkinson's disease without dyskinesia, without mention of fluctuations
CPT/HCPCS: 70553; A9575

== ENCOUNTER → 2024-04-03 | Outpatient (CLI) | payer MEDICARE ==
[~2024-04-03] MED LIST changes: -GADOTERATE MEGLUMINE 10 MMOL/20 ML VIAL IV ONE; -ROSU20TA73 PO; +ROSU20TA98 PO
== END | disposition home or self-care (01) ==
LOC: LAB 03-30 11:43
PROVIDERS: ATTEND Internal Medicine Cardiovascular Disease
DX: I10 Essential (primary) hypertension (principal)
CPT/HCPCS: 36415; 83835

== ENCOUNTER → 2024-04-06 | Outpatient (CLI) | payer MEDICARE | END | disposition home or self-care (01) | LOC: SHCH 08:21 | PROVIDERS: ATTEND Internal Medicine Cardiovascular Disease | DX: I10 Essential (primary) hypertension (principal) | CPT/HCPCS: 93975 ==

== ENCOUNTER → 2024-09-10 | Outpatient (CLI) | payer MEDICARE ==
[~2024-09-10] VITALS: Ht 180.3 cm; Wt 76.4 kg
[~2024-09-10] MED LIST changes: +ASPI-1197 PO; +ATOR40TA69 PO; -CLON1PAT13 TD; +CLOP-31 PO; +EMPA25TA PO; -ERGO500093 PO; -FERS325 PO; +FOLI0.8C PO; -INSU100I24 SQ; -LEVO75CA5 PO; +LEVO88CA5 PO; +LOSA-420 PO; +MECO10005 PO; +METO-409 PO; -MULT-1367 PO; +NIFE-40 PO; -PIND10TA2 PO; +ROSU10TA72 PO; -ROSU20TA98 PO; +SEMA1PEN3 SQ; -SERT-440 PO; +SERT200C PO; +TAMS-55 PO; +VERA120T92 PO; +VERA240T96 PO
[2024-09-10 13:18] LABS: BASOPHILS # (AUTO) 0.04 K/uL (0.00-0.20); BASOPHILS % (AUTO) 0.6 % (0.0-5.0); EOSINOPHILS # (AUTO) 0.29 K/uL (0.00-0.70); EOSINOPHILS % (AUTO) 4.6 % (0.0-8.0); HEMATOCRIT 41.6 % (42-54); IMMATURE GRANULOCYTE ABSOLUTE 0.02 K/uL (0-1); LYMPHOCYTES % (AUTO) 16.3 % (21.0-51.0); MEAN CORPUSCULAR HGB CONC 32.7 g/dL (32.0-36.0); MEAN CORPUSCULAR VOLUME 97.9 fL (79-99); MONOCYTES # (AUTO) 0.5 K/uL (0.1-1.0); MONOCYTES % (AUTO) 8.5 % (3.0-13.0); NEUTROPHILS # (AUTO) 4.3 K/uL (1.8-7.7); NEUTROPHILS % (AUTO) 69.7 % (40.0-77.0); PLATELET COUNT (AUTO) 106 K/uL (130-400); RED BLOOD CELL COUNT(AUTO) 4.25 MIL/uL (4.50-6.20); RED CELL DISTRIBUTION WIDTH 13.9 % (11.0-15.5); WHITE BLOOD COUNT (AUTO) 6.2 K/uL (4.8-10.8)
[2024-09-10 13:27] LABS: INR 0.98 (0.85-1.15); PROTHROMBIN TIME 10.4 SEC (9.6-11.6)
[2024-09-10 13:28] LABS: PARTIAL THROMBOPLASTIN TIME 25.4 SEC (26.3-35.5)
[2024-09-10 13:33] LABS: CREATININE 1.3 mg/dL (0.5-1.3); POTASSIUM 4.1 mmol/L (3.5-5.1)
[2024-09-10 13:42] LABS: B-TYPE NATRIURETIC PEPTIDE 117 pg/mL (0-100)
[2024-09-10 13:59] VITALS: BP 126/71; PULSE 81; RESP 18; TEMP 97.4
--- NOTE | 2024-09-11 06:52 | EKG ---
[facility] Test Date: 2024-09-10 Test Time: 13:08:18 Pat Name: JEREMY MATTHEWS Department: [facility] Room: Gender: M Metrology Specialist: [id number] : 1955 Requested By: ANNABEL CASIANO Order Number: [id number] Reading MD: Annabel Vazquez Measurements Intervals [place] Rate: 71 P: 68 [place]: 159 QRS: 7 QRSD: 102 T: 54 QT: 419 QTc: 456 Interpretive Statements Sinus rhythm Nonspecific T abnrm, anterolateral leads Compared to ECG 09/05/2024 23:07:19 No significant changes Electronically Signed On 09-13-2024 15:00:53 CDT by Annabel Vazquez Please click the below link to view image of tracing.
--- NOTE | 2024-09-11 09:39 | NUR ---
REPORT NORMA [employer] NETWORKING ENGINEER AWARE PT IN HOSPITAL. THEY ARE FOLLOWING UP WITH PT. BETTYE REPORTED. NO NEW ORDERS GIVEN AT THIS TIME. NORMA WILL CALL BACK AFTER CONSULTING WITH DR CASIANO
== END | disposition home or self-care (01) ==
LOC: EDSTATUS 12:00 → DAH 12:39
PROVIDERS: ATTEND Internal Medicine Cardiovascular Disease
DX: Z01.818 Encounter for other preprocedural examination (principal); R94.31 Abnormal electrocardiogram [ECG] [EKG]; I73.9 Peripheral vascular disease, unspecified; I48.0 Paroxysmal atrial fibrillation; Z79.899 Other long term (current) drug therapy
CPT/HCPCS: 36415; 80048; 83880; 85025; 85610; 85730; 93005

== ENCOUNTER → 2025-03-07 | Outpatient (CLI) | payer MEDICARE ==
[~2025-03-07] VITALS: Ht 180.3 cm; Wt 71.8 kg
[~2025-03-07] MED LIST changes: -ASPI-1197 PO; +ATOR-2 PO; -ATOR40TA69 PO; +DRON400T7 PO; +ERGO500093 PO; +FINA5TAB41 PO; +IRON1CAP32 PO; +LEVO75CA6 PO; -LEVO88CA5 PO; -LOSA-420 PO; -LOSA50TA64 PO; -METO-409 PO; -NIFE-40 PO; +PIND10TA8 PO; -PIOG15TA66 PO; -ROSU10TA72 PO; -SEMA1PEN3 SQ; +SEMA2PEN SQ; +SERT-440 PO; -SERT200C PO; -TAMS-55 PO; +VERA180T60 PO; -VERA240T96 PO; +VITAMIN B12 PO; +[UNRECOGNIZED DRUG - OTHER] PO
[2025-03-07 13:37] LABS: IMMATURE GRANULOCYTE ABSOLUTE 0.03 K/uL (0-1); NUCLEATED RED BLOOD CELLS 0.0 % (0.0-0.19); PLATELET COUNT (AUTO) 104 K/uL (130-400); RED BLOOD CELL COUNT(AUTO) 4.36 MIL/uL (4.50-6.20); RED CELL DISTRIBUTION WIDTH 13.4 % (11.0-15.5); WHITE BLOOD COUNT (AUTO) 7.2 K/uL (4.8-10.8)
[2025-03-07 13:45] LABS: CREATININE 1.3 mg/dL (0.5-1.3); GLOMERULAR FILTR. RATE CALC 58.0 mL/min (>90); GLUCOSE,RANDOM 212.0 mg/dL (70-105); SODIUM SERUM 144.0 mmol/L (136-145); UREA NITROGEN, BLOOD 18.0 mg/dL (7-18)
[2025-03-07 14:09] VITALS: BP 141/90; PULSE 119; RESP 15; TEMP 97.3
--- NOTE | 2025-03-07 14:21 | NUR ---
REPORT DR SNYDER NOTIFIED PT TOOK OZEMPIC TUESDAY. RECEIVED ORDERS TO CANCEL AND PT NEEDS TO BE OFF OZEMPIC FOR AT LEAST ONE WEEK. SPOUSE NOTIFIED
== END | disposition home or self-care (01) ==
LOC: EDSTATUS 13:00 → DAH 13:05
PROVIDERS: ATTEND Internal Medicine Cardiovascular Disease
DX: Z01.812 Encounter for preprocedural laboratory examination (principal); I48.0 Paroxysmal atrial fibrillation
CPT/HCPCS: 36415; 80048; 85025

== ENCOUNTER 2025-03-27 09:24 | Day surgery (SDC) | payer MEDICARE ==
[2025-03-25 13:04] LABS: IMMATURE GRANULOCYTE ABSOLUTE 0.03 K/uL (0-1); NUCLEATED RED BLOOD CELLS 0.0 % (0.0-0.19); PLATELET COUNT (AUTO) 111 K/uL (130-400); RED BLOOD CELL COUNT(AUTO) 3.93 MIL/uL (4.50-6.20); RED CELL DISTRIBUTION WIDTH 14.0 % (11.0-15.5); WHITE BLOOD COUNT (AUTO) 6.9 K/uL (4.8-10.8)
[2025-03-25 13:08] LABS: CREATININE 1.2 mg/dL (0.5-1.3); GLOMERULAR FILTR. RATE CALC 64.0 mL/min (>90); GLUCOSE,RANDOM 272.0 mg/dL (70-105); SODIUM SERUM 139.0 mmol/L (136-145); UREA NITROGEN, BLOOD 15.0 mg/dL (7-18)
[2025-03-25 13:10] VITALS: BP 129/89; PULSE 111; RESP 17; TEMP 97.5
[~2025-03-27] VITALS: Ht 180.3 cm; Wt 71.3 kg
[2025-03-27] VITALS (10 sets, daily range): BP systolic 129–172; BP diastolic 88–118; PULSE 77–115; RESP 7–17; TEMP 97.7
[~2025-03-27 09:24] MED LIST changes: -CLOP-31 PO; +CLOP75TA32 PO; -MECO10005 PO; -VERA120T92 PO; -[UNRECOGNIZED DRUG - OTHER] PO
[2025-03-27] MEDS ORDERED: LIDOCAINE PF 100MG/5ML (2%) SYRINGE 5ML ONE (09:41)
[2025-03-27] MEDS ORDERED: GLYCOPYRROLATE 0.2 MG/ML 5 ML VIAL ONE (09:43)
[2025-03-27] MEDS ORDERED: SUCCINYLCHOLINE CHLORIDE 20 MG/ML 10 ML VIAL ONE (09:50)
--- NOTE | 2025-03-27 09:58 | NUR ---
EKG sent to Dr Mitchell upon arrival.
--- NOTE | 2025-03-27 10:29 | EKG ---
[facility] Test Date: 2025-03-27 Test Time: 10:45:05 Pat Name: JEREMY MATTHEWS Department: [facility] Room: [facility] Gender: M Data Security Analyst: [id number] : 1955 Requested By: KATE HOU Order Number: [id number] Reading MD: Estefania De Leon Measurements Intervals [place] Rate: 113 P: 8 [place]: 139 QRS: 2 QRSD: 85 T: 54 QT: 353 QTc: 484 Interpretive Statements Sinus tachycardia Compared to ECG 01/30/2025 09:34:46 Sinus rhythm no longer present Electronically Signed On 03-28-2025 12:32:57 INSTRUMENTATION FITTER by Estefania De Leon Please click the below link to view image of tracing.
--- NOTE | 2025-03-27 12:20 | NUR ---
Cardioversion completed. Procedure start time 12:06 PRAVEENA Valdez adminstered meds 12:[address] Mitchell 12:08 Converted to SR End of Procedure 12:15 Total minutes [address] Mitchell updated and Patient at bedside.
--- NOTE | 2025-03-27 13:10 | NUR ---
Full and complete discharge instructions given to Patient and Family. All questions answered. PIV removed with catheter tip intact. Patient tolerating liquids and voided before discharge. Patint remains in SR with vs wnl. W/C to POV with Family to Home.
--- NOTE | 2025-03-27 16:24 | EKG ---
[facility] Test Date: 2025-03-27 Test Time: 13:05:48 Pat Name: JEREMY MATTHEWS Department: [facility] Room: [facility] Gender: M Senior Advisory: [id number] : 1955 Requested By: KATE HOU Order Number: [id number] Reading MD: Estefania De Leon Measurements Intervals [place] Rate: 78 P: 35 [place]: 160 QRS: -16 QRSD: 112 T: 70 QT: 402 QTc: 459 Interpretive Statements Sinus rhythm Probable left atrial enlargement Compared to ECG 03/27/2025 10:45:05 Sinus tachycardia no longer present Electronically Signed On 03-28-2025 12:31:13 OPTIMIZATION MANAGER by Estefania De Leon Please click the below link to view image of tracing.
--- NOTE | 2025-04-18 07:42 | PRN ---
Procedure Note INDICATION FOR PROCEDURE: Persistent atrial fibrillation PROCEDURE: Cardioversion DATE OF PROCEDURE: HARNESS REPAIRER: Mario Hou MD PROCEDURE NOTE: The patient was prepared in the day patient area in a fasting state. General anesthesia was provided by the anesthesia service. Synchronized cardioversion was performed resulting in sinus rhythm. The patient tolerated the procedure well and there were no complications. IMPRESSION: Persistent atrial fibrillation, status post successful cardioversion PLAN: The patient will be observed and discharged home later this morning and will follow-up with me in the office in approximately 2 weeks. MARIO HOU MD Apr 18, 2025 07:42
== END 2025-03-27 13:45 | disposition home or self-care (01) ==
LOC: DAH 09:24
PROVIDERS: ATTEND Internal Medicine Cardiovascular Disease
DX: I48.19 Other persistent atrial fibrillation (principal); I48.0 Paroxysmal atrial fibrillation; I10 Essential (primary) hypertension; E11.9 Type 2 diabetes mellitus without complications; G47.33 Obstructive sleep apnea (adult) (pediatric); E78.5 Hyperlipidemia, unspecified; E03.9 Hypothyroidism, unspecified; Z79.01 Long term (current) use of anticoagulants; Z85.828 Personal history of other malignant neoplasm of skin; Z79.899 Other long term (current) drug therapy
CPT/HCPCS: 80048; 85025; 36415; 92960; 93005 ×2; 82948; J0330; J2003; J2704; J3490; A4620; A4215; A4222; A4221; A4663; A4216; A4606; A4223 ×3

== ENCOUNTER 2025-04-09 14:54 | Emergency (ER) | payer MEDICARE ==
[~2025-04-09] VITALS: Ht 180.3 cm; Wt 68.0 kg
--- NOTE | 2025-04-09 15:09 | NUR ---
REFER TO TRAUMA FLOW SHEET
--- NOTE | 2025-04-09 15:40 | HMCIMG ---
EXAM: CT Head Without IV contrast. CLINICAL HISTORY: FALL TECHNIQUE: Axial computed tomography images of the head/brain without intravenous contrast. COMPARISON: None provided. FINDINGS: BRAIN: No acute bleed or infarct. Chronic ischemic and atrophic changes. VENTRICLES: No hydrocephalus. ORBITS: The orbits are unremarkable. SINUSES AND MASTOIDS: The paranasal sinuses and mastoid air cells are clear. BONES: No fracture. SOFT TISSUES: Unremarkable. IMPRESSION: No acute bleed or infarct. Chronic ischemic and atrophic changes. /[place]
--- NOTE | 2025-04-09 16:06 | ERN ---
ED Note History of Present Illness Stated Complaint: FALL Chief Complaint: Mechanical Fall Time Seen by MD: 15:01 Dictation: 70-year-old male presenting to the emergency department by personal vehicle after he slipped on some blankets and fell while in the garage onto the back of his head he is on Plavix, no loss of consciousness no vomiting injured the back of his head no other injuries besides scrapes to the right elbow and right hand tetanus is not up-to-date. No chest pain or shortness a breath no back pain was able to ambulate with no hip pain as well. Allergies: Coded Allergies: No Known Drug Allergies (Verified Allergy, Unknown, 03/04/22) Home Meds Reported Medications Folic Acid (Folic Acid) 0.8 Mg Capsule, 0.8 MG PO QODAY, CAP 03/25/25 Empagliflozin (Jardiance) 25 Mg Tablet, 25 MG PO DAILY, TAB 03/25/25 Clopidogrel Bisulfate (Clopidogrel) 75 Mg Tablet, 75 MG PO DAILY, TAB 03/25/25 Sertraline HCl (Sertraline HCl) 100 Mg Tablet, 200 MG PO DAILY, TAB 03/25/25 Levothyroxine Sodium (Levothyroxine) 75 Mcg Capsule, 75 MCG PO ACBKFST, CAP 03/25/25 Iron Fum & P/FA/Vit B & C No.9 (Integra Plus Capsule) 125 Mg Iron-1 Mg Capsule, 1 EACH PO QODAY, CAP 03/25/25 Finasteride (Finasteride) 5 Mg Tablet, 5 MG PO DAILY, TAB 03/25/25 Ergocalciferol (Vitamin D2) (Vitamin D2) 1,250 Mcg (53142 Unit) Capsule, 2 CAP PO QWEEK, CAP 03/25/25 Atorvastatin Calcium (Atorvastatin Calcium) 80 Mg Tablet, 80 MG PO DAILY, TAB 03/25/25 [Vitamin B12] No Conflict Check, 5000 MCG PO QODAY 03/07/25 Verapamil HCl (Verapamil ER) 180 Mg Tablet.er, 180 MG PO AM, TAB 03/07/25 Dronedarone Hydrochloride (Multaq) 400 Mg Tablet, 400 MG PO BID, TAB 03/07/25 Semaglutide (Ozempic) 2 Mg/0.75 Ml (8 Mg/3 Ml) Pen.injctr, 0.5 MG SQ Tuesday03/07/25 Pindolol (Pindolol) 10 Mg Tablet, 10 MG PO BID, TAB 01/29/25 Apixaban (Eliquis) 5 Mg Tablet, 5 MG PO BID, TAB 06/13/24 Past Medical History Past Medical History: CAD, Diabetes-Type II, High Cholesterol, Hypertension Additional Past Medical Hx: Subdural hematoma x 3, PVD Surgical History: Other Surgical History Other: COLON RESECTION Social History: Negative Review of System Dictation Constitutional: Negative for fever,chills, and weight loss Eyes: Negative for injury, pain,redness, and discharge ENT: Negative for injury,pain or swelling Cardiovascular: Negative for chest pain, palpitations, and edema Respiratory: Negative for shortness of breath, cough, and wheezing, Abdomen/GI: Negative for abdominal pain, nausea, vomiting, diarrhea, and constipation Back: Negative for injury and pain : Negative for injury, bleeding and discharge MS/Extremity: Negative for injury and deformity Skin: Per Hpi Neuro: Per HPI Initial Vital Sign VS Vital Signs Date Time Temp Pulse Resp B/P (MAP) Pulse Ox O2 Delivery O2 Flow Rate FiO2 04/09/25 15:00 98.1 74 18 125/64 98 Room Air 0 Physical Exam Dictation General: awake, alert, NAD Head/Face: Normocephalic, atraumatic Eyes: PERRL, EOMI, vision at baseline ENT: oral cavity clear, TMs clear, no signs of infection Neck: Trachea midline, supple, no nuchal rigidity Cardiovascular: RRR, normal S1/S2, No MRGs, no JVD Respiratory: CTAB, no respiratory distress, No rales or wheezes Abdomen: Soft, non-tender, non-distended, normal bowel sounds, no guarding or rebound. Skin: Warm, dry, normal turgor, no rash, superficial contusion to the back of the scalp MS/Extremity: Pulses equal, no cyanosis, neurovascular intact, FROM Neuro: COAx4, GCS 15, strength 5/5, CN 2-12 intact, normal cerebellar exam, normal gait, Psych: Normal behavior, mood, and affect normal ED Course ED Course Orders Procedure Category Date Status Time Ct Head/Brain W/O CT 04/09/25 Resulted Contrast 15:08 Tetanus,Diphtheria PHA 04/09/25 Complete Tox [Adult] (Diphther 15:30 Current Medications Medications (Trade) Dose Ordered Sig/Jonathan Route PRN Reason Start Time Stop Time Status Last Admin Dose Admin Tetanus/ Diphtheria Toxoids Adsorbed (DiphthERIA-teTANUS TOXOID [ADULT]/ DECAVAC) 0.5 ml ONCE ONCE IM 04/09/25 15:30 04/09/25 15:31 DC Vital Signs Date Time Temp Pulse Resp B/P (MAP) Pulse Ox O2 Delivery O2 Flow Rate FiO2 04/09/25 15:00 98.1 74 18 125/64 98 Room Air 0 Medical Decision Making MDM MDM: Differential diagnosis: Rationale: Tests considered and ordered secondary to shared decision making include: Previous outside records reviewed: Old ER visits. Risk of complication and/or morbidity or mortality of patient management: None Medications-Per medication reconciliation Need for hospitalization: Patient does not meet criteria for hospitalization. Need for emergency major/minor surgery: No There are no social concerns with this patient. Prescription drug management Prescriptions will include symptomatic care Patient's prior external medical records from other ER visits were reviewed by me as indicated. Prior testing and results from previous visits were reviewed. Prior tests were taken into account with medical decision making and resource utilization, independent historian/historians were used to obtain complete medical history. I independently interpreted the test that were performed, results were reviewed by me and considered findings on radiology if ordered. Medical management and examination interpretation discussions were had by me with other qualified healthcare professionals as indicated for the patient's care. 70-year-old male with ground level fall CT scan negative tetanus updated no sutures needed stable for discharge. DX & DISP Disposition: Discharge Departure Impression: Primary Impression: Closed head injury Additional Impression: Scalp contusion Condition: Stable Referrals: SHAWNA BURGOS MD (PCP) AUDREY ACOSTA MD Apr 09, 2025 16:06
[2025-04-09 16:42] VITALS: BP 166/88; PULSE 75; RESP 18; TEMP 98.1; O2SAT 98
== END 2025-04-09 16:54 | disposition home or self-care (01) ==
LOC: EDH 14:54
DX: S00.03XA Contusion of scalp, initial encounter (principal); E11.9 Type 2 diabetes mellitus without complications; E78.00 Pure hypercholesterolemia, unspecified; I10 Essential (primary) hypertension; I25.10 Atherosclerotic heart disease of native coronary artery without angina pectoris; Z79.01 Long term (current) use of anticoagulants; Z79.02 Long term (current) use of antithrombotics/antiplatelets; Z79.84 Long term (current) use of oral hypoglycemic drugs; Z79.899 Other long term (current) drug therapy; W01.0XXA Fall on same level from slipping, tripping and stumbling without subsequent striking against object, initial encounter; Y93.89 Activity, other specified; Y92.89 Other specified places as the place of occurrence of the external cause; Y99.8 Other external cause status
CPT/HCPCS: 70450; 90471; 90714; 99285